=== PATIENT | female | born 1950 | race Caucasian/White ===

== ENCOUNTER 2018-09-09 04:35 | Emergency (ER) | payer OTHER ==
[~2018-09-09] VITALS: Ht 162.6 cm; Wt 78.9 kg
[2018-09-09] MEDS ORDERED: GEODON 80 MG CA80 MG PO (04:40)
[2018-09-09] MEDS ORDERED: METFORMIN HCL500 MG PO (04:41)
[2018-09-09] MEDS ORDERED: LAMICTAL200 MG PO (04:41)
[2018-09-09] MEDS ORDERED: SIMVASTATIN40 MG PO (04:42)
[2018-09-09] MEDS ORDERED: ZOLOFT100 MG PO (04:42)
[2018-09-09] MEDS ORDERED: CLONAZEPAM 1 MG1 M1 PO (04:43)
[2018-09-09 05:10] LABS: ABSOLUTE NEUTROPHILS 4.7 thou/uL (1.4-8.2); BASOPHILS 0.7 % (0.0-2.0); EOSINOPHILS 3.4 % (0.0-3.0); HEMATOCRIT 38.4 % (37.0-47.0); HEMOGLOBIN 13.3 gm/dL (12.0-15.0); LYMPHOCYTES 28.3 % (24.0-44.0); MCH 30.4 pg (26.0-34.0); MCHC 34.6 g/dL (28.0-37.0); MCV 87.7 fL (80.0-100.0); PLATELET COUNT 216 thou/uL (150-400); POLYS 61.6 % (36.0-66.0); RBC 4.37 mil/uL (4.20-5.00); RDW 13.2 % (10.5-14.5); WBC 7.7 thou/uL (4.0-11.0)
[2018-09-09 05:20] LABS: CALCIUM 10.3 mg/dL (8.5-10.1); POTASSIUM 3.8 mmol/L (3.5-5.1)
[2018-09-09 05:48] VITALS: BP 152/51
--- NOTE | 2018-09-09 08:30 | EKG ---
[place] [place] [address] ELECTROCARDIOGRAM REPORT Name: SHREYAS RAMÍREZPANDA Room #: DEP ANIKET Proctor#: [id number] Admission: 09/09/18 Attend Phys: Discharge: 09/09/18 Date of : 54 Report #: [id number] THIS REPORT FOR: //name// [facility] ED Test Date: 2018-09-09 Test Time: 04:52:16 Pat Name: EULALIA RAMÍREZ Department: Room: Gender: F Medical Representative: : 1950 Requested By: Suresh West Order Number: [id number] MD: Jose De Jesus Trejo Measurements Intervals [place] Rate: 81 P: 55 MT: 156 QRS: -14 QRSD: 119 T: 63 QT: 379 QTc: 440 Interpretive Statements Sinus rhythm No significant abnormality Baseline wander in lead(s) V5 No previous ECG available for comparison Electronically Signed On 09-09-2018 8:30:07 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
== END 2018-09-09 05:48 | disposition home or self-care (01) ==
LOC: ER 04:35
PROVIDERS: Emergency Medicine
DX: R42 Dizziness and giddiness (principal); R51 Headache; E11.9 Type 2 diabetes mellitus without complications; F31.9 Bipolar disorder, unspecified